=== PATIENT | male | born 1990 | race Two or more races ===

== ENCOUNTER 2024-04-10 16:08 | Emergency (ER) | payer OTHER ==
[~2024-04-10] VITALS: Ht 167.6 cm; Wt 95.3 kg
[2024-04-10 18:19] VITALS: BP 135/87; O2SAT 100
[2024-04-10] MEDS ORDERED: CLINDAMYCIN PHOSPHATE 150 MG/ML (600mg) IV ONE (21:45)
[2024-04-10] MEDS ORDERED: CLINDAMYCIN PHOSPHATE 150 MG/ML (900mg) ONE (22:06)
[2024-04-10] MEDS ORDERED: CLEOCIN HCL300 MG PO ×2 (23:31→23:54)
[2024-04-10] MEDS ORDERED: INTESTINEX680 M1 PO (23:31)
== END 2024-04-11 00:17 | disposition home or self-care (01) ==
LOC: ER 16:10
DX: L02.212 Cutaneous abscess of back [any part, except buttock and flank] (principal)